=== PATIENT | female | born 1965 | race Caucasian/White ===

== ENCOUNTER 2016-12-13 15:42 | Inpatient (IN) | payer BC, OTHER ==
[~2016-12-13] VITALS: Ht 160 cm; Wt 80.7 kg
[2016-12-14] MEDS ORDERED: LEVE500T20 PO (04:13)
[2016-12-14] MEDS ORDERED: METO25TA6 PO (04:13)
[2016-12-14] MEDS ORDERED: THIA100T13 PO (04:13)
[2016-12-14] MEDS ORDERED: LOPE2CAP40 PO (04:13)
[2016-12-14] MEDS ORDERED: DOCU100C PO (04:13)
[2016-12-14] MEDS ORDERED: ALBU8.5H2 INH (04:13)
[2016-12-14] MEDS ORDERED: NYST5ORA PO (04:13)
[2016-12-14] MEDS ORDERED: NYST60PO TP (04:13)
[2016-12-14] MEDS ORDERED: GABA300T26 PO (04:13)
[2016-12-14] MEDS ORDERED: FERR324T7 PO (04:13)
[2016-12-14] MEDS ORDERED: MENT71OI TP (04:13)
[2016-12-14] MEDS ORDERED: DULO60CA63 PO (04:13)
[2016-12-14] MEDS ORDERED: MAGN400T26 PO (04:13)
[2016-12-14] MEDS ORDERED: ONDA-25 PO (04:13)
[2016-12-14 04:20] VITALS: BP 96/68
[2016-12-14] MEDS ORDERED: ACETAMINOPHEN 325 MG TABLET PO PRN (05:30)
[2016-12-14] MEDS ORDERED: IBUPROFEN 400 MG TABLET PO PRN (05:30)
[2016-12-14] MEDS ORDERED: MIRALAX 17 GM POWD.PACK PO PRN (05:30)
[2016-12-14] MEDS ORDERED: MAGNESIUM HYDROXIDE 30 ML LIQUID UDC PO PRN (05:30)
[2016-12-14] MEDS ORDERED: PROMETHAZINE HCL 25 MG/1 ML VIAL IM PRN (05:30)
[2016-12-14] MEDS ORDERED: MAG HYDROX/AL HYDROX/SIMETH 30 ML LIQUID UDC PO PRN (05:30)
[2016-12-14] MEDS ORDERED: diphenhydrAMINE 50 MG CAPSULE PO PRN (05:30)
[2016-12-14] MEDS ORDERED: ONDANSETRON ODT 4 MG TAB.RAPDIS SL PRN (05:30)
[2016-12-14] MEDS ORDERED: LOPERAMIDE HCL 2 MG CAPSULE PO PRN (05:30)
[2016-12-14] MEDS ORDERED: BUPRENORPHINE HCL 2 MG TAB.SUBL SL PRN (05:30)
[2016-12-14 06:56] LABS: BASOPHILS % (AUTO) 0.1 % (0.0-2.0); EOSINOPHILS # (AUTO) 0.1 K/uL (0.0-0.7); EOSINOPHILS % (AUTO) 1.1 % (0.0-7.0); HEMATOCRIT 34.2 % (37.0-47.0); HEMOGLOBIN 11.2 g/dL (12.0-16.0); LYMPHOCYTES # (AUTO) 1.5 K/uL (0.8-4.8); MEAN CORPUSCULAR HEMOGLOBIN 25.4 uug (27.0-31.0); MEAN CORPUSCULAR HGB CONC 33 g/dL (32.0-37.0); MEAN CORPUSCULAR VOLUME 77.4 fL (81.0-99.0); MONOCYTES # (AUTO) 0.8 K/uL (0.1-1.30); MONOCYTES % (AUTO) 8.8 % (0.0-11.0); NEUTROPHILS # (AUTO) 6.7 K/uL (1.8-8.9); PLATELET COUNT (AUTO) 363 K/uL (150-450); RED BLOOD CELL COUNT(AUTO) 4.41 MIL/uL (4.20-5.40); RED CELL DISTRIBUTION WIDTH 16.8 % (11.5-14.5); WHITE BLOOD COUNT (AUTO) 9.1 K/uL (4.0-11.2)
[2016-12-14 07:34] LABS: ALANINE AMINOTRANSFERASE 20 U/L (14-59); ALBUMIN 2.5 g/dL (3.4-5.0); ALKALINE PHOSPHATASE 81 U/L (50-136); AMYLASE 8 U/L (25-115); ASPARTATE AMINOTRANSFERASE 59 U/L (15-37); BILIRUBIN,TOTAL 0.5 mg/dL (0.2-1.0); CALCIUM 9.1 mg/dL (8.5-10.1); CARBON DIOXIDE 25 mmol/L (21-32); CHLORIDE 99 mmol/L (98-107); GFR 25 mL/min (>60); GLUCOSE 97 mg/dL (74-106); LIPASE 51 U/L (73-393); MAGNESIUM 1.6 mg/dL (1.8-2.4); POTASSIUM 3.7 mmol/L (3.5-5.1); SODIUM SERUM 133 mmol/L (136-145); TOTAL PROTEIN, SERUM 7.2 g/dL (6.4-8.2); UREA NITROGEN, BLOOD 20 mg/dL (7-18)
[2016-12-14 07:37] LABS: CREATININE 2.1 mg/dL (0.6-1.3)
[2016-12-14 07:45] LABS: THYROID STIMULATING HORMONE 4.153 mIU/mL (0.358-3.740)
[2016-12-14 08:00] VITALS: BP 104/66
[2016-12-14 08:29] LABS: ETHANOL < 3 MG/DL (0-0)
[2016-12-14 09:40] LABS: HIV-1 p24 ANTIGEN NON REACTIVE (NONREACTIVE); HIV-1/2 ANTIBODY NON REACTIVE (NONREACTIVE)
[2016-12-14 10:02] LABS: *URINE HCG, QUAL NEGATIVE (NEGATIVE)
[2016-12-14] MEDS ORDERED: CLONIDINE HCL 0.1 MG TABLET PO SCH (10:04)
[2016-12-14] MEDS: MULTIVITAMINS,THERAPEUTIC TABLET PO SCH (10:16)
[2016-12-14 10:19] LABS: *AMPHETAMINE, URINE NEGATIVE (NEGATIVE); *BARBITURATE, URINE NEGATIVE (NEGATIVE); *CANNABINOID, URINE NEGATIVE (NEGATIVE); *COCCAINE, URINE NEGATIVE (NEGATIVE); *OPIATE, URINE NEGATIVE (NEGATIVE); *PHENCYCLIDINE SCREEN,URINE NEGATIVE (NEGATIVE)
[2016-12-14 12:00] VITALS: BP 112/72
[2016-12-14] MEDS ORDERED: LORAZEPAM 1 MG TABLET PO PRN (12:30)
[2016-12-14] MEDS ORDERED: MAGNESIUM OXIDE 400 MG TABLET PO ONE (12:30)
[2016-12-14] MEDS ORDERED: STOOL SOFTNER PO PRN (12:30)
[2016-12-14] MEDS ORDERED: DICYCLOMINE HCL 20 MG TABLET PO PRN (12:30)
[2016-12-14] MEDS ORDERED: LORAZEPAM 2 MG/1 ML VIAL IM PRN (12:30)
[2016-12-14] MEDS ORDERED: PATIENT MAY USE OWN MED- MD OK INH PRN (12:30)
[2016-12-14] MEDS: IBUPROFEN 600 MG TABLET PO PRN ×2 (13:25→22:03)
[2016-12-14] MEDS: HYDROXYZINE PAMOATE 25 MG CAPSULE PO PRN (13:26)
[2016-12-14] MEDS: METHOCARBAMOL 750 MG TABLET PO PRN (13:45)
[2016-12-14] MEDS: LOPERAMIDE HCL 2 MG CAPSULE PO PRN ×2 (13:45→22:03)
[2016-12-14] MEDS ORDERED: NEOMY/BACITRAC/POLYMI OINT 28.35 GM TUBE TOP SCH (15:00)
[2016-12-14 16:00] VITALS: BP 97/68
[2016-12-14] MEDS: GABAPENTIN 300 MG CAPSULE PO SCH (17:19)
[2016-12-14] MEDS: DULOXETINE 60 MG CAPSULE.DR PO SCH (17:19)
[2016-12-14 20:00] VITALS: BP 110/78
[2016-12-14] MEDS ORDERED: LEVETIRACETAM 500 MG TABLET PO SCH (21:00)
[2016-12-14] MEDS ORDERED: CEPHALEXIN MONOHYDRATE 250 MG CAPSULE PO SCH (22:00)
[2016-12-14] MEDS: LEVETIRACETAM 250 MG TABLET PO SCH (22:01)
[2016-12-14] MEDS: DOXYCYCLINE HYCLATE 100 MG TABLET PO SCH (22:01)
[2016-12-14] MEDS: ACIDOPHILUS/BULGARICUS CHEW TAB GT SCH (22:02)
[2016-12-14] MEDS: CEPHALEXIN MONOHYDRATE 500 MG CAPSULE PO SCH (22:02)
[2016-12-15] VITALS (7 sets, daily range): BP systolic 90–141; BP diastolic 55–94
[2016-12-15] MEDS: ACIDOPHILUS/BULGARICUS CHEW TAB GT SCH ×3 (06:01→21:26)
[2016-12-15] MEDS: CEPHALEXIN MONOHYDRATE 500 MG CAPSULE PO SCH ×3 (06:01→21:26)
[2016-12-15] MEDS: METHOCARBAMOL 750 MG TABLET PO PRN (06:04)
[2016-12-15 08:14] LABS: BASOPHILS % (AUTO) 0.4 % (0.0-2.0); EOSINOPHILS # (AUTO) 0.4 K/uL (0.0-0.7); EOSINOPHILS % (AUTO) 5.6 % (0.0-7.0); HEMOGLOBIN 9.4 g/dL (12.0-16.0); LYMPHOCYTES # (AUTO) 1.7 K/uL (0.8-4.8); LYMPHOCYTES % (AUTO) 23.7 % (20.5-51.5); MEAN CORPUSCULAR HEMOGLOBIN 24.6 uug (27.0-31.0); MEAN CORPUSCULAR HGB CONC 33 g/dL (32.0-37.0); MEAN CORPUSCULAR VOLUME 75.6 fL (81.0-99.0); MONOCYTES # (AUTO) 0.7 K/uL (0.1-1.30); MONOCYTES % (AUTO) 9.6 % (0.0-11.0); NEUTROPHILS # (AUTO) 4.2 K/uL (1.8-8.9); NEUTROPHILS % (AUTO) 60.7 % (38.5-71.5); PLATELET COUNT (AUTO) 298 K/uL (150-450); RED BLOOD CELL COUNT(AUTO) 3.83 MIL/uL (4.20-5.40); RED CELL DISTRIBUTION WIDTH 17.1 % (11.5-14.5)
[2016-12-15 09:00] LABS: ALBUMIN 2.2 g/dL (3.4-5.0); BILIRUBIN,DIRECT 0.1 mg/dL (0.0-0.2); BILIRUBIN,TOTAL 0.3 mg/dL (0.2-1.0); CALCIUM 8.6 mg/dL (8.5-10.1); MAGNESIUM 1.9 mg/dL (1.8-2.4); PHOSPHOROUS 4.9 mg/dL (2.5-4.9); POTASSIUM 3.5 mmol/L (3.5-5.1); TOTAL PROTEIN, SERUM 6.3 g/dL (6.4-8.2)
[2016-12-15] MEDS: NICOTINE 14 MG/24HR PATCH TD SCH (09:00)
[2016-12-15 09:01] LABS: CREATININE 1.4 mg/dL (0.6-1.3)
[2016-12-15] MEDS: LEVETIRACETAM 250 MG TABLET PO SCH (09:35)
[2016-12-15] MEDS: DOXYCYCLINE HYCLATE 100 MG TABLET PO SCH ×2 (09:35→21:27)
[2016-12-15] MEDS: DULOXETINE 60 MG CAPSULE.DR PO SCH ×2 (09:35→17:14)
[2016-12-15] MEDS: MULTIVITAMINS,THERAPEUTIC TABLET PO SCH (09:35)
[2016-12-15] MEDS: HYDROXYZINE PAMOATE 25 MG CAPSULE PO PRN ×2 (09:35→21:38)
[2016-12-15] MEDS: IBUPROFEN 600 MG TABLET PO PRN (09:35)
[2016-12-15] MEDS: LOPERAMIDE HCL 2 MG CAPSULE PO PRN ×2 (09:35→21:27)
[2016-12-15] MEDS: GABAPENTIN 300 MG CAPSULE PO SCH ×3 (09:36→21:25)
[2016-12-15] MEDS: CLONIDINE HCL 0.1 MG TABLET PO PRN (09:36)
[2016-12-15] MEDS: NEOMY/BACITRA/POLYMYXIN B OINT UD PACKET TP SCH ×3 (09:46→17:14)
[2016-12-15] MEDS ORDERED: TUBERCULIN,PURIF.PROT.DERIV. 5 TU/0.1 ML TEST ID ONE (10:08)
[2016-12-15] MEDS ORDERED: ENOXAPARIN SODIUM 30 MG/0.3 ML DISP.SYRIN SUBCUT SCH (14:00)
[2016-12-15] MEDS: DICYCLOMINE HCL 20 MG TABLET PO SCH ×2 (14:37→21:18)
[2016-12-15] MEDS: BACLOFEN 10 MG TABLET PO SCH ×2 (14:37→21:18)
[2016-12-15] MEDS: SILVER SULFADIAZINE 1% CREAM 50 GM TP SCH (21:18)
[2016-12-15] MEDS: FERROUS SULFATE 325 MG TABEC PO SCH (21:19)
[2016-12-15] MEDS: LEVETIRACETAM 500 MG TABLET PO SCH (21:25)
[2016-12-15] MEDS: ASCORBIC ACID 250 MG TABLET PO SCH (21:26)
[2016-12-15] MEDS: ENOXAPARIN SODIUM 40 MG/0.4 ML DISP.SYRIN SQ SCH (21:31)
[2016-12-16] VITALS: BP 98/65
[2016-12-16 04:00] VITALS: BP 97/61
[2016-12-16] MEDS: CEPHALEXIN MONOHYDRATE 500 MG CAPSULE PO SCH ×3 (06:30→21:57)
[2016-12-16] MEDS: IBUPROFEN 600 MG TABLET PO PRN (06:30)
[2016-12-16] MEDS: LOPERAMIDE HCL 2 MG CAPSULE PO PRN (07:33)
[2016-12-16 08:00] VITALS: BP 105/67
[2016-12-16 08:03] LABS: BASOPHILS % (AUTO) 0.3 % (0.0-2.0); EOSINOPHILS # (AUTO) 0.2 K/uL (0.0-0.7); HEMATOCRIT 34.9 % (37.0-47.0); HEMOGLOBIN 11.2 g/dL (12.0-16.0); LYMPHOCYTES # (AUTO) 1.6 K/uL (0.8-4.8); MEAN CORPUSCULAR HEMOGLOBIN 24.5 uug (27.0-31.0); MEAN CORPUSCULAR HGB CONC 32 g/dL (32.0-37.0); MEAN CORPUSCULAR VOLUME 76.5 fL (81.0-99.0); MONOCYTES # (AUTO) 0.7 K/uL (0.1-1.30); MONOCYTES % (AUTO) 9.2 % (0.0-11.0); NEUTROPHILS # (AUTO) 5.2 K/uL (1.8-8.9); NEUTROPHILS % (AUTO) 66.5 % (38.5-71.5); PLATELET COUNT (AUTO) 385 K/uL (150-450); RED BLOOD CELL COUNT(AUTO) 4.57 MIL/uL (4.20-5.40); RED CELL DISTRIBUTION WIDTH 17.2 % (11.5-14.5); WHITE BLOOD COUNT (AUTO) 7.7 K/uL (4.0-11.2)
[2016-12-16 08:18] LABS: CALCIUM 8.6 mg/dL (8.5-10.1); CREATININE 0.9 mg/dL (0.6-1.3); MAGNESIUM 1.5 mg/dL (1.8-2.4); PHOSPHOROUS 3.3 mg/dL (2.5-4.9); POTASSIUM 3.3 mmol/L (3.5-5.1)
[2016-12-16 08:48] LABS: THYROID STIMULATING HORMONE 0.969 mIU/mL (0.358-3.740)
[2016-12-16] MEDS: NICOTINE 14 MG/24HR PATCH TD SCH (09:00)
[2016-12-16] MEDS: GABAPENTIN 300 MG CAPSULE PO SCH ×3 (09:33→21:57)
[2016-12-16] MEDS: DOXYCYCLINE HYCLATE 100 MG TABLET PO SCH ×2 (09:33→21:57)
[2016-12-16] MEDS: FERROUS SULFATE 325 MG TABEC PO SCH ×2 (09:33→21:57)
[2016-12-16] MEDS: LEVETIRACETAM 500 MG TABLET PO SCH ×2 (09:33→21:58)
[2016-12-16] MEDS: ASCORBIC ACID 250 MG TABLET PO SCH ×2 (09:33→21:57)
[2016-12-16] MEDS: MULTIVITAMINS,THERAPEUTIC TABLET PO SCH (09:33)
[2016-12-16] MEDS: DULOXETINE 60 MG CAPSULE.DR PO SCH ×2 (09:33→17:24)
[2016-12-16] MEDS: BACLOFEN 10 MG TABLET PO SCH ×3 (09:33→21:57)
[2016-12-16] MEDS: BUPRENORPHINE HCL 2 MG TAB.SUBL SL SCH ×4 (09:33→21:58)
[2016-12-16] MEDS: DICYCLOMINE HCL 20 MG TABLET PO SCH ×3 (09:34→21:57)
[2016-12-16] MEDS: SILVER SULFADIAZINE 1% CREAM 50 GM TP SCH ×2 (09:34→17:25)
[2016-12-16] MEDS ORDERED: NEOMY/BACITRAC/POLYMI OINT 28.35 GM TUBE TP SCH (09:49)
[2016-12-16] MEDS ORDERED: POTASSIUM CHLORIDE 10 MEQ CAPSULE.SA PO ONE (10:15)
[2016-12-16] MEDS ORDERED: MAGNESIUM OXIDE 400 MG TABLET PO ONE (10:15)
[2016-12-16] MEDS ORDERED: QUETIAPINE FUMARATE 25 MG TABLET PO ONE (11:30)
[2016-12-16 12:00] VITALS: BP 107/69
[2016-12-16 14:46] LABS: *OCCULT BLOOD STOOL POSITIVE (NEGATIVE)
[2016-12-16] MEDS: ACIDOPHILUS/BULGARICUS CHEW TAB PO SCH ×2 (14:48→21:57)
[2016-12-16 16:00] VITALS: BP 121/73
[2016-12-16] MEDS ORDERED: NEOMY/BACITRAC/POLYMI OINT 28.35 GM TUBE TP PRN (16:30)
[2016-12-16] MEDS: QUETIAPINE FUMARATE 25 MG TABLET PO SCH (17:25)
[2016-12-16 20:00] VITALS: BP 103/68
[2016-12-16] MEDS: ENOXAPARIN SODIUM 40 MG/0.4 ML DISP.SYRIN SQ SCH (22:00)
[2016-12-17] MEDS: ACIDOPHILUS/BULGARICUS CHEW TAB PO SCH ×3 (06:51→22:00)
[2016-12-17] MEDS: CEPHALEXIN MONOHYDRATE 500 MG CAPSULE PO SCH (06:51)
[2016-12-17 08:00] VITALS: BP 121/89
[2016-12-17 08:12] LABS: BASOPHILS # (AUTO) 0.1 K/uL (0.0-0.2); BASOPHILS % (AUTO) 0.7 % (0.0-2.0); EOSINOPHILS # (AUTO) 0.2 K/uL (0.0-0.7); EOSINOPHILS % (AUTO) 3.2 % (0.0-7.0); HEMATOCRIT 31.6 % (37.0-47.0); HEMOGLOBIN 10.4 g/dL (12.0-16.0); LYMPHOCYTES # (AUTO) 1.9 K/uL (0.8-4.8); LYMPHOCYTES % (AUTO) 26.5 % (20.5-51.5); MEAN CORPUSCULAR HEMOGLOBIN 25.4 uug (27.0-31.0); MEAN CORPUSCULAR HGB CONC 33 g/dL (32.0-37.0); MEAN CORPUSCULAR VOLUME 76.9 fL (81.0-99.0); MONOCYTES # (AUTO) 0.8 K/uL (0.1-1.30); MONOCYTES % (AUTO) 10.9 % (0.0-11.0); NEUTROPHILS # (AUTO) 4.2 K/uL (1.8-8.9); NEUTROPHILS % (AUTO) 58.7 % (38.5-71.5); PLATELET COUNT (AUTO) 329 K/uL (150-450); RED BLOOD CELL COUNT(AUTO) 4.11 MIL/uL (4.20-5.40); RED CELL DISTRIBUTION WIDTH 16.8 % (11.5-14.5); WHITE BLOOD COUNT (AUTO) 7.2 K/uL (4.0-11.2)
[2016-12-17] MEDS: LEVETIRACETAM 500 MG TABLET PO SCH ×2 (08:28→22:13)
[2016-12-17] MEDS: DOXYCYCLINE HYCLATE 100 MG TABLET PO SCH (08:28)
[2016-12-17] MEDS: QUETIAPINE FUMARATE 25 MG TABLET PO SCH ×2 (08:29→16:01)
[2016-12-17] MEDS: DICYCLOMINE HCL 20 MG TABLET PO SCH ×3 (08:29→22:13)
[2016-12-17] MEDS: SILVER SULFADIAZINE 1% CREAM 50 GM TP SCH ×2 (08:29→16:01)
[2016-12-17] MEDS: GABAPENTIN 300 MG CAPSULE PO SCH ×3 (08:29→22:14)
[2016-12-17] MEDS: BUPRENORPHINE HCL 2 MG TAB.SUBL SL SCH ×3 (08:29→22:15)
[2016-12-17] MEDS: MULTIVITAMINS,THERAPEUTIC TABLET PO SCH (08:29)
[2016-12-17] MEDS: ASCORBIC ACID 250 MG TABLET PO SCH ×2 (08:29→22:14)
[2016-12-17] MEDS: DULOXETINE 60 MG CAPSULE.DR PO SCH ×2 (08:29→16:01)
[2016-12-17] MEDS: FERROUS SULFATE 325 MG TABEC PO SCH ×2 (08:29→22:13)
[2016-12-17 08:33] LABS: CALCIUM 8.4 mg/dL (8.5-10.1); CREATININE 0.6 mg/dL (0.6-1.3); MAGNESIUM 1.6 mg/dL (1.8-2.4); PHOSPHOROUS 3.3 mg/dL (2.5-4.9); POTASSIUM 3.8 mmol/L (3.5-5.1)
[2016-12-17] MEDS: NICOTINE 14 MG/24HR PATCH TD SCH (08:34)
[2016-12-17 09:09] LABS: *CREATININE,URINE 68.9 mg/dL (30-125)
[2016-12-17] MEDS: Z GUARD REMEDY PASTE 57 GM TUBE TOP PRN (09:40)
[2016-12-17] MEDS ORDERED: MAGNESIUM OXIDE 400 MG TABLET PO ONE ×2 (10:45→14:00)
[2016-12-17 12:00] VITALS: BP 120/80
[2016-12-17] MEDS ORDERED: QUETIAPINE FUMARATE 25 MG TABLET PO PRN (15:15)
[2016-12-17 16:00] VITALS: BP 92/58
[2016-12-17] MEDS: VANCOMYCIN FOR PO/GT/NG USE PO SCH (18:32)
[2016-12-17] MEDS ORDERED: MEROPENEM 500 MG in IV NORMAL SALINE 50 ML IV SCH (19:45)
[2016-12-17 20:00] VITALS: BP 91/51
[2016-12-17] MEDS ORDERED: MEROPENEM 500 MG VIAL IV ONE (20:49)
[2016-12-17] MEDS: ENOXAPARIN SODIUM 40 MG/0.4 ML DISP.SYRIN SQ SCH (22:16)
[2016-12-18] VITALS: BP 101/54
[2016-12-18] MEDS: VANCOMYCIN FOR PO/GT/NG USE PO SCH ×5 (00:09→23:58)
[2016-12-18] MEDS: ACIDOPHILUS/BULGARICUS CHEW TAB PO SCH ×3 (06:00→21:31)
[2016-12-18 08:00] VITALS: BP 103/78
[2016-12-18 08:20] LABS: CREATININE 0.6 mg/dL (0.6-1.3); MAGNESIUM 1.5 mg/dL (1.8-2.4); POTASSIUM 3.7 mmol/L (3.5-5.1)
[2016-12-18 08:46] LABS: BASOPHILS % (AUTO) 0.6 % (0.0-2.0); EOSINOPHILS # (AUTO) 0.2 K/uL (0.0-0.7); EOSINOPHILS % (AUTO) 4.1 % (0.0-7.0); HEMATOCRIT 32.4 % (37.0-47.0); HEMOGLOBIN 10.6 g/dL (12.0-16.0); LYMPHOCYTES # (AUTO) 1.8 K/uL (0.8-4.8); MEAN CORPUSCULAR HEMOGLOBIN 25.2 uug (27.0-31.0); MEAN CORPUSCULAR HGB CONC 33 g/dL (32.0-37.0); MEAN CORPUSCULAR VOLUME 77.2 fL (81.0-99.0); MONOCYTES # (AUTO) 0.5 K/uL (0.1-1.30); MONOCYTES % (AUTO) 8.9 % (0.0-11.0); NEUTROPHILS % (AUTO) 53.4 % (38.5-71.5); PLATELET COUNT (AUTO) 350 K/uL (150-450); RED BLOOD CELL COUNT(AUTO) 4.21 MIL/uL (4.20-5.40); RED CELL DISTRIBUTION WIDTH 16.6 % (11.5-14.5); WHITE BLOOD COUNT (AUTO) 5.5 K/uL (4.0-11.2)
[2016-12-18] MEDS ORDERED: BUPRENORPHINE HCL 2 MG TAB.SUBL SL SCH (09:00)
[2016-12-18] MEDS ORDERED: VANCOMYCIN IV 1,250 MG in IV DEXTROSE 5% 500 ML IV SCH (09:00)
[2016-12-18 09:25] LABS: FOLIC ACID 14.4 NG/ML (8.6-58.9)
[2016-12-18] MEDS: SILVER SULFADIAZINE 1% CREAM 50 GM TP SCH ×2 (09:45→16:43)
[2016-12-18] MEDS: Z GUARD REMEDY PASTE 57 GM TUBE TOP PRN (09:45)
[2016-12-18] MEDS: QUETIAPINE FUMARATE 25 MG TABLET PO SCH ×2 (09:47→16:42)
[2016-12-18] MEDS: MULTIVITAMINS,THERAPEUTIC TABLET PO SCH (09:47)
[2016-12-18] MEDS: DULOXETINE 60 MG CAPSULE.DR PO SCH ×2 (09:47→16:42)
[2016-12-18] MEDS: DICYCLOMINE HCL 20 MG TABLET PO SCH ×3 (09:48→20:35)
[2016-12-18] MEDS: LEVETIRACETAM 500 MG TABLET PO SCH ×2 (09:48→20:36)
[2016-12-18] MEDS: GABAPENTIN 300 MG CAPSULE PO SCH ×3 (09:49→20:36)
[2016-12-18] MEDS: MEROPENEM 500 MG in IV NORMAL SALINE 50 ML IV SCH ×2 (09:50→21:31)
[2016-12-18] MEDS: ASCORBIC ACID 250 MG TABLET PO SCH ×2 (09:50→20:36)
[2016-12-18] MEDS: NICOTINE 14 MG/24HR PATCH TD SCH (09:51)
[2016-12-18] MEDS: VANCOMYCIN IV 1,250 MG in IV DEXTROSE 5% 500 ML IV SCH ×2 (10:46→22:01)
[2016-12-18] MEDS: FERROUS SULFATE 325 MG TABEC PO SCH ×3 (11:40→18:31)
[2016-12-18 12:00] VITALS: BP 126/85
[2016-12-18] MEDS: BUPRENORPHINE HCL 2 MG TAB.SUBL SL SCH ×2 (14:09→20:37)
[2016-12-18] MEDS ORDERED: MAGNESIUM OXIDE 400 MG TABLET PO ONE (15:00)
[2016-12-18] MEDS: MAGNESIUM SULFATE/D5W 100 ML IV SCH ×2 (15:48→17:27)
[2016-12-18 16:00] VITALS: BP 107/74
[2016-12-18] MEDS ORDERED: FLUCONAZOLE 200 MG/NS 100ML IV 100 MG in PREMIXED 1 EACH IV SCH (19:30)
[2016-12-18 20:00] VITALS: BP 119/84
[2016-12-18] MEDS ORDERED: FLUCONAZOLE 200 MG/100 ML PIGGYBACK ONE ×2 (20:16→20:18)
[2016-12-18] MEDS: ENOXAPARIN SODIUM 40 MG/0.4 ML DISP.SYRIN SQ SCH (20:42)
[2016-12-19] VITALS: BP 137/92
[2016-12-19] MEDS: VANCOMYCIN FOR PO/GT/NG USE PO SCH ×3 (06:15→18:04)
[2016-12-19] MEDS: ACIDOPHILUS/BULGARICUS CHEW TAB PO SCH ×3 (06:16→21:58)
[2016-12-19 07:31] LABS: CALCIUM 8.2 mg/dL (8.5-10.1); CREATININE 0.6 mg/dL (0.6-1.3); MAGNESIUM 1.8 mg/dL (1.8-2.4); PHOSPHOROUS 3.5 mg/dL (2.5-4.9)
[2016-12-19 08:00] VITALS: BP 125/99
[2016-12-19 08:02] LABS: BASOPHILS % (AUTO) 0.5 % (0.0-2.0); EOSINOPHILS # (AUTO) 0.4 K/uL (0.0-0.7); EOSINOPHILS % (AUTO) 6.9 % (0.0-7.0); HEMATOCRIT 32.8 % (37.0-47.0); HEMOGLOBIN 11.1 g/dL (12.0-16.0); LYMPHOCYTES # (AUTO) 1.8 K/uL (0.8-4.8); LYMPHOCYTES % (AUTO) 33.7 % (20.5-51.5); MEAN CORPUSCULAR HGB CONC 34 g/dL (32.0-37.0); MEAN CORPUSCULAR VOLUME 76.5 fL (81.0-99.0); MONOCYTES # (AUTO) 0.5 K/uL (0.1-1.30); MONOCYTES % (AUTO) 10.2 % (0.0-11.0); NEUTROPHILS # (AUTO) 2.6 K/uL (1.8-8.9); NEUTROPHILS % (AUTO) 48.7 % (38.5-71.5); PLATELET COUNT (AUTO) 379 K/uL (150-450); RED BLOOD CELL COUNT(AUTO) 4.29 MIL/uL (4.20-5.40); RED CELL DISTRIBUTION WIDTH 16.6 % (11.5-14.5); WHITE BLOOD COUNT (AUTO) 5.3 K/uL (4.0-11.2)
[2016-12-19] MEDS: VANCOMYCIN IV 1,250 MG in IV DEXTROSE 5% 500 ML IV SCH (08:48)
[2016-12-19] MEDS: NICOTINE 14 MG/24HR PATCH TD SCH (09:00)
[2016-12-19] MEDS: SILVER SULFADIAZINE 1% CREAM 50 GM TP SCH ×2 (10:18→18:05)
[2016-12-19] MEDS: MULTIVITAMINS,THERAPEUTIC TABLET PO SCH (10:21)
[2016-12-19] MEDS: QUETIAPINE FUMARATE 25 MG TABLET PO SCH ×2 (10:21→18:04)
[2016-12-19] MEDS: GABAPENTIN 300 MG CAPSULE PO SCH ×3 (10:21→21:58)
[2016-12-19] MEDS: BUPRENORPHINE HCL 2 MG TAB.SUBL SL SCH ×3 (10:22→21:58)
[2016-12-19] MEDS: DULOXETINE 60 MG CAPSULE.DR PO SCH ×2 (10:22→18:04)
[2016-12-19] MEDS: DICYCLOMINE HCL 20 MG TABLET PO SCH ×3 (10:22→21:58)
[2016-12-19] MEDS: ASCORBIC ACID 250 MG TABLET PO SCH ×2 (10:33→21:58)
[2016-12-19] MEDS: LEVETIRACETAM 500 MG TABLET PO SCH ×2 (10:33→21:58)
[2016-12-19] MEDS: FERROUS SULFATE 325 MG TABEC PO SCH ×3 (10:35→18:04)
[2016-12-19 12:00] VITALS: BP 128/88
[2016-12-19] MEDS: MEROPENEM 500 MG in IV NORMAL SALINE 50 ML IV SCH (12:00)
[2016-12-19] MEDS: IV NS 1000 ML 1,000 ML IV PRN (12:00)
[2016-12-19 16:00] VITALS: BP 130/86
[2016-12-19 20:00] VITALS: BP 133/84
[2016-12-19] MEDS ORDERED: NORMAL SALINE IV SCH (20:00)
[2016-12-19] MEDS ORDERED: DAPTOMYCIN IV SCH (20:00)
[2016-12-19] MEDS: DAPTOMYCIN 500 MG in IV NORMAL SALINE 50 ML IV SCH (20:48)
[2016-12-19] MEDS ORDERED: LACTOBACILLUS RHAMNOSUS GG 1 EACH CAPSULE PO SCH (21:00)
[2016-12-19] MEDS ORDERED: LINEZOLID 600 MG TABLET PO SCH (21:00)
[2016-12-19] MEDS: ENOXAPARIN SODIUM 40 MG/0.4 ML DISP.SYRIN SQ SCH (21:57)
[2016-12-20] VITALS: BP 124/59
[2016-12-20] MEDS: VANCOMYCIN FOR PO/GT/NG USE PO SCH ×4 (00:33→18:10)
[2016-12-20] MEDS: IV NS 1000 ML 1,000 ML IV PRN ×2 (01:41→20:31)
[2016-12-20] MEDS: ACIDOPHILUS/BULGARICUS CHEW TAB PO SCH ×3 (05:31→21:04)
[2016-12-20] MEDS: HYDROXYZINE PAMOATE 25 MG CAPSULE PO PRN (05:53)
[2016-12-20 07:18] LABS: BASOPHILS % (AUTO) 0.5 % (0.0-2.0); EOSINOPHILS # (AUTO) 0.3 K/uL (0.0-0.7); EOSINOPHILS % (AUTO) 6.9 % (0.0-7.0); HEMATOCRIT 30.9 % (37.0-47.0); HEMOGLOBIN 10.4 g/dL (12.0-16.0); LYMPHOCYTES # (AUTO) 1.6 K/uL (0.8-4.8); LYMPHOCYTES % (AUTO) 34.3 % (20.5-51.5); MEAN CORPUSCULAR HEMOGLOBIN 25.7 uug (27.0-31.0); MEAN CORPUSCULAR HGB CONC 34 g/dL (32.0-37.0); MEAN CORPUSCULAR VOLUME 76.1 fL (81.0-99.0); MONOCYTES # (AUTO) 0.5 K/uL (0.1-1.30); MONOCYTES % (AUTO) 11.8 % (0.0-11.0); NEUTROPHILS # (AUTO) 2.1 K/uL (1.8-8.9); NEUTROPHILS % (AUTO) 46.5 % (38.5-71.5); PLATELET COUNT (AUTO) 400 K/uL (150-450); RED BLOOD CELL COUNT(AUTO) 4.06 MIL/uL (4.20-5.40); RED CELL DISTRIBUTION WIDTH 16.7 % (11.5-14.5); WHITE BLOOD COUNT (AUTO) 4.5 K/uL (4.0-11.2)
[2016-12-20 07:29] LABS: CALCIUM 7.5 mg/dL (8.5-10.1); CARBON DIOXIDE 26 mmol/L (21-32); CHLORIDE 95 mmol/L (98-107); GFR > 130 mL/min (>60); GLUCOSE 101 mg/dL (74-106); MAGNESIUM 1.5 mg/dL (1.8-2.4); PHOSPHOROUS 3.6 mg/dL (2.5-4.9); POTASSIUM 3.7 mmol/L (3.5-5.1); SODIUM SERUM 128 mmol/L (136-145); UREA NITROGEN, BLOOD 6 mg/dL (7-18)
[2016-12-20 07:40] LABS: CREATININE 0.5 mg/dL (0.6-1.3)
[2016-12-20] MEDS: DULOXETINE 60 MG CAPSULE.DR PO SCH ×2 (08:55→18:09)
[2016-12-20] MEDS: MULTIVITAMINS,THERAPEUTIC TABLET PO SCH (08:55)
[2016-12-20] MEDS: GABAPENTIN 300 MG CAPSULE PO SCH ×3 (08:55→21:04)
[2016-12-20] MEDS: LEVETIRACETAM 500 MG TABLET PO SCH ×2 (08:55→21:03)
[2016-12-20] MEDS: FLUCONAZOLE 200 MG TABLET PO SCH (08:56)
[2016-12-20] MEDS: QUETIAPINE FUMARATE 25 MG TABLET PO SCH ×2 (08:56→18:10)
[2016-12-20] MEDS: ASCORBIC ACID 250 MG TABLET PO SCH ×2 (08:56→21:03)
[2016-12-20] MEDS: SILVER SULFADIAZINE 1% CREAM 50 GM TP SCH ×2 (08:57→18:10)
[2016-12-20] MEDS: NICOTINE 14 MG/24HR PATCH TD SCH (08:59)
[2016-12-20 09:00] VITALS: BP 120/79
[2016-12-20] MEDS ORDERED: BUPRENORPHINE HCL 2 MG TAB.SUBL SL SCH (09:00)
[2016-12-20] MEDS: DICYCLOMINE HCL 20 MG TABLET PO SCH ×3 (09:34→21:04)
[2016-12-20] MEDS: METHOCARBAMOL 750 MG TABLET PO PRN (09:34)
[2016-12-20] MEDS ORDERED: LIDOCAINE 5% OINT 35.44 GM TUBE TOP PRN (10:15)
[2016-12-20] MEDS: FERROUS SULFATE 325 MG TABEC PO SCH ×3 (12:01→18:10)
[2016-12-20] MEDS ORDERED: MAGNESIUM OXIDE 400 MG TABLET PO ONE (12:15)
[2016-12-20 14:07] VITALS: BP 133/88
[2016-12-20 14:43] LABS: *AMPHETAMINE, URINE NEGATIVE (NEGATIVE); *BARBITURATE, URINE NEGATIVE (NEGATIVE); *CANNABINOID, URINE NEGATIVE (NEGATIVE); *COCCAINE, URINE NEGATIVE (NEGATIVE); *OPIATE, URINE NEGATIVE (NEGATIVE); *PHENCYCLIDINE SCREEN,URINE NEGATIVE (NEGATIVE)
[2016-12-20] MEDS: MAGNESIUM SULFATE/D5W 100 ML IV SCH ×3 (14:54→17:09)
[2016-12-20 17:28] VITALS: BP 135/85
[2016-12-20 20:00] VITALS: BP 106/66
[2016-12-20] MEDS: DAPTOMYCIN 500 MG in IV NORMAL SALINE 50 ML IV SCH (20:30)
[2016-12-20] MEDS: ENOXAPARIN SODIUM 40 MG/0.4 ML DISP.SYRIN SQ SCH (21:08)
[2016-12-21] MEDS: VANCOMYCIN FOR PO/GT/NG USE PO SCH ×4 (00:31→17:06)
[2016-12-21] MEDS: IV NS 1000 ML 1,000 ML IV PRN (05:46)
[2016-12-21] MEDS: ACIDOPHILUS/BULGARICUS CHEW TAB PO SCH ×3 (06:18→21:14)
[2016-12-21 07:48] LABS: HEMATOCRIT 31.6 % (37.0-47.0); HEMOGLOBIN 10.5 g/dL (12.0-16.0); MEAN CORPUSCULAR HEMOGLOBIN 25.5 uug (27.0-31.0); MEAN CORPUSCULAR HGB CONC 33 g/dL (32.0-37.0); PLATELET COUNT (AUTO) 373 K/uL (150-450); RED CELL DISTRIBUTION WIDTH 16.3 % (11.5-14.5); WHITE BLOOD COUNT (AUTO) 5.9 K/uL (4.0-11.2)
[2016-12-21] MEDS: DULOXETINE 60 MG CAPSULE.DR PO SCH ×2 (08:15→17:05)
[2016-12-21] MEDS: MULTIVITAMINS,THERAPEUTIC TABLET PO SCH (08:15)
[2016-12-21] MEDS: GABAPENTIN 300 MG CAPSULE PO SCH ×3 (08:15→21:14)
[2016-12-21] MEDS: DICYCLOMINE HCL 20 MG TABLET PO SCH ×3 (08:15→21:14)
[2016-12-21] MEDS: LEVETIRACETAM 500 MG TABLET PO SCH ×2 (08:15→21:14)
[2016-12-21] MEDS: FLUCONAZOLE 200 MG TABLET PO SCH (08:16)
[2016-12-21] MEDS: ASCORBIC ACID 250 MG TABLET PO SCH ×2 (08:16→21:14)
[2016-12-21] MEDS: QUETIAPINE FUMARATE 25 MG TABLET PO SCH ×2 (08:16→17:06)
[2016-12-21] MEDS: SILVER SULFADIAZINE 1% CREAM 50 GM TP SCH ×2 (08:17→17:06)
[2016-12-21 08:32] LABS: CALCIUM 7.9 mg/dL (8.5-10.1); CARBON DIOXIDE 22 mmol/L (21-32); CHLORIDE 97 mmol/L (98-107); GFR > 130 mL/min (>60); GLUCOSE 112 mg/dL (74-106); MAGNESIUM 1.8 mg/dL (1.8-2.4); PHOSPHOROUS 3.4 mg/dL (2.5-4.9); POTASSIUM 4.8 mmol/L (3.5-5.1); SODIUM SERUM 125 mmol/L (136-145); UREA NITROGEN, BLOOD 4 mg/dL (7-18)
[2016-12-21 08:33] VITALS: BP 141/85
[2016-12-21 08:33] LABS: CREATININE 0.5 mg/dL (0.6-1.3)
[2016-12-21] MEDS: NICOTINE 14 MG/24HR PATCH TD SCH (09:00)
[2016-12-21] MEDS: FERROUS SULFATE 325 MG TABEC PO SCH ×3 (11:08→18:19)
[2016-12-21 11:27] LABS: BAND % (MANUAL) 2 % (0-10); LYMPHOCYTES % (MANUAL) 36 % (20-40); MONOCYTES % (MANUAL) 7 % (2-10); NEUTROPHILS % (MANUAL) 55 % (42-75); PLATELET ESTIMATE ADEQUATE
[2016-12-21 11:28] LABS: ANISOCYTOSIS 1+; HYPOCHROMASIA 1+
[2016-12-21] MEDS: HYDROXYZINE PAMOATE 25 MG CAPSULE PO PRN ×2 (12:43→21:14)
[2016-12-21 12:46] VITALS: BP 138/86
[2016-12-21] MEDS ORDERED: IV NS 1000 ML 1,000 ML IV ONE (17:00)
[2016-12-21 18:37] VITALS: BP 110/60
[2016-12-21] MEDS: Z GUARD REMEDY PASTE 57 GM TUBE TOP PRN (19:33)
[2016-12-21 20:00] VITALS: BP 138/82
[2016-12-21] MEDS: DAPTOMYCIN 500 MG in IV NORMAL SALINE 50 ML IV SCH (21:13)
[2016-12-21] MEDS: IBUPROFEN 600 MG TABLET PO PRN (21:14)
[2016-12-21] MEDS: ENOXAPARIN SODIUM 40 MG/0.4 ML DISP.SYRIN SQ SCH (21:15)
[2016-12-21] MEDS: CLONIDINE HCL 0.1 MG TABLET PO PRN (21:15)
[2016-12-22] MEDS: VANCOMYCIN FOR PO/GT/NG USE PO SCH ×4 (00:08→17:11)
[2016-12-22] MEDS: ACIDOPHILUS/BULGARICUS CHEW TAB PO SCH ×2 (06:20→15:20)
[2016-12-22 06:30] VITALS: BP 114/70
[2016-12-22 07:41] LABS: BASOPHILS % (AUTO) 0.2 % (0.0-2.0); EOSINOPHILS # (AUTO) 0.2 K/uL (0.0-0.7); EOSINOPHILS % (AUTO) 2.6 % (0.0-7.0); HEMOGLOBIN 9.4 g/dL (12.0-16.0); LYMPHOCYTES # (AUTO) 1.8 K/uL (0.8-4.8); LYMPHOCYTES % (AUTO) 23.8 % (20.5-51.5); MEAN CORPUSCULAR HEMOGLOBIN 25.9 uug (27.0-31.0); MEAN CORPUSCULAR HGB CONC 34 g/dL (32.0-37.0); MEAN CORPUSCULAR VOLUME 76.9 fL (81.0-99.0); MONOCYTES # (AUTO) 0.5 K/uL (0.1-1.30); MONOCYTES % (AUTO) 7.1 % (0.0-11.0); NEUTROPHILS # (AUTO) 4.9 K/uL (1.8-8.9); NEUTROPHILS % (AUTO) 66.3 % (38.5-71.5); PLATELET COUNT (AUTO) 359 K/uL (150-450); RED BLOOD CELL COUNT(AUTO) 3.65 MIL/uL (4.20-5.40); RED CELL DISTRIBUTION WIDTH 16.6 % (11.5-14.5); WHITE BLOOD COUNT (AUTO) 7.4 K/uL (4.0-11.2)
[2016-12-22 07:49] LABS: CREATININE 0.6 mg/dL (0.6-1.3); MAGNESIUM 1.6 mg/dL (1.8-2.4)
[2016-12-22 08:00] VITALS: BP 131/83
[2016-12-22 08:08] LABS: HEPATITIS B CORE AB, IgM Negative; HEPATITIS B SURFACE AG Negative
[2016-12-22 08:33] LABS: ANISOCYTOSIS 1+; EOSINOPHILS % (MANUAL) 3 % (0-8); HYPOCHROMASIA 1+; LYMPHOCYTES % (MANUAL) 19 % (20-40); MONOCYTES % (MANUAL) 6 % (2-10); NEUTROPHILS % (MANUAL) 72 % (42-75); PLATELET ESTIMATE ADEQUATE
[2016-12-22] MEDS: NICOTINE 14 MG/24HR PATCH TD SCH (09:00)
[2016-12-22] MEDS: QUETIAPINE FUMARATE 25 MG TABLET PO SCH ×2 (09:50→17:13)
[2016-12-22] MEDS: DICYCLOMINE HCL 20 MG TABLET PO SCH ×3 (09:51→20:43)
[2016-12-22] MEDS: MULTIVITAMINS,THERAPEUTIC TABLET PO SCH (09:51)
[2016-12-22] MEDS: GABAPENTIN 300 MG CAPSULE PO SCH ×3 (09:51→20:43)
[2016-12-22] MEDS: LEVETIRACETAM 500 MG TABLET PO SCH ×2 (09:51→20:43)
[2016-12-22] MEDS: ASCORBIC ACID 250 MG TABLET PO SCH ×2 (09:51→20:43)
[2016-12-22] MEDS: DULOXETINE 60 MG CAPSULE.DR PO SCH ×2 (09:51→17:13)
[2016-12-22] MEDS: FLUCONAZOLE 200 MG TABLET PO SCH (09:52)
[2016-12-22] MEDS: SILVER SULFADIAZINE 1% CREAM 50 GM TP SCH ×2 (09:52→17:14)
[2016-12-22] MEDS: IBUPROFEN 600 MG TABLET PO PRN (10:14)
[2016-12-22] MEDS: HYDROXYZINE PAMOATE 25 MG CAPSULE PO PRN (10:18)
[2016-12-22] MEDS ORDERED: MAGNESIUM OXIDE 400 MG TABLET PO ONE (11:00)
[2016-12-22 12:00] VITALS: BP 129/90
[2016-12-22] MEDS: FERROUS SULFATE 325 MG TABEC PO SCH ×3 (12:07→18:33)
[2016-12-22 16:00] VITALS: BP 156/109
[2016-12-22] MEDS: CLONIDINE HCL 0.1 MG TABLET PO PRN (17:11)
[2016-12-22] MEDS: METHOCARBAMOL 750 MG TABLET PO PRN (17:11)
[2016-12-22 20:00] VITALS: BP 156/89
[2016-12-22] MEDS ORDERED: KETOROLAC TROMETHAMINE 30 MG INJ IM ONE (20:00)
[2016-12-22] MEDS: DAPTOMYCIN 500 MG in IV NORMAL SALINE 50 ML IV SCH (20:34)
[2016-12-22] MEDS: ENOXAPARIN SODIUM 40 MG/0.4 ML DISP.SYRIN SQ SCH (20:44)
[2016-12-22] MEDS ORDERED: ASCO250T5 PO (20:54)
[2016-12-22] MEDS ORDERED: ACID1TAB4 PO (20:54)
[2016-12-22] MEDS ORDERED: FERR325T28 PO (20:54)
[2016-12-22 23:45] VITALS: BP 154/86
== END 2016-12-22 23:52 | disposition short-term general hospital (02) | DRG 895 ==
LOC: SRC 12-14 02:19
PROVIDERS: ADMIT Internal Medicine; ATTEND Internal Medicine
PROC: HZ2ZZZZ Detoxification Services for Substance Abuse Treatment (ICD-10-PCS; principal; 2016-12-14)
PROC: HZ41ZZZ Group Counseling for Substance Abuse Treatment, Behavioral (ICD-10-PCS; 2016-12-15)
PROC: HZ31ZZZ Individual Counseling for Substance Abuse Treatment, Behavioral (ICD-10-PCS; 2016-12-16)
PROC: 05H533Z Insertion of Infusion Device into Right Subclavian Vein, Percutaneous Approach (ICD-10-PCS; 2016-12-19)
DX: F11.23 Opioid dependence with withdrawal (principal); L03.116 Cellulitis of left lower limb; K63.2 Fistula of intestine; N17.9 Acute kidney failure, unspecified; A04.7 Enterocolitis due to Clostridium difficile; L97.829 Non-pressure chronic ulcer of other part of left lower leg with unspecified severity; L97.819 Non-pressure chronic ulcer of other part of right lower leg with unspecified severity; E87.1 Hypo-osmolality and hyponatremia; F33.3 Major depressive disorder, recurrent, severe with psychotic symptoms; B37.89 Other sites of candidiasis; L03.115 Cellulitis of right lower limb; E66.01 Morbid (severe) obesity due to excess calories; G40.909 Epilepsy, unspecified, not intractable, without status epilepticus; F10.21 Alcohol dependence, in remission; G89.4 Chronic pain syndrome; Z90.710 Acquired absence of both cervix and uterus; Z98.84 Bariatric surgery status; Z83.3 Family history of diabetes mellitus; Z82.49 Family history of ischemic heart disease and other diseases of the circulatory system; Z68.31 Body mass index [BMI] 31.0-31.9, adult; Z81.1 Family history of alcohol abuse and dependence; Z86.74 Personal history of sudden cardiac arrest; M14.672 Charcot's joint, left ankle and foot; M14.671 Charcot's joint, right ankle and foot; D50.9 Iron deficiency anemia, unspecified; B95.7 Other staphylococcus as the cause of diseases classified elsewhere; I87.2 Venous insufficiency (chronic) (peripheral); F17.210 Nicotine dependence, cigarettes, uncomplicated; E88.09 Other disorders of plasma-protein metabolism, not elsewhere classified; Z86.73 Personal history of transient ischemic attack (TIA), and cerebral infarction without residual deficits; K26.7 Chronic duodenal ulcer without hemorrhage or perforation; N18.9 Chronic kidney disease, unspecified; I12.9 Hypertensive chronic kidney disease with stage 1 through stage 4 chronic kidney disease, or unspecified chronic kidney disease; J45.909 Unspecified asthma, uncomplicated; I95.1 Orthostatic hypotension; G47.00 Insomnia, unspecified; E83.42 Hypomagnesemia; E07.81 Sick-euthyroid syndrome; E87.8 Other disorders of electrolyte and fluid balance, not elsewhere classified; I70.8 Atherosclerosis of other arteries; B95.2 Enterococcus as the cause of diseases classified elsewhere; Z16.21 Resistance to vancomycin; E86.0 Dehydration; E87.6 Hypokalemia; E86.1 Hypovolemia; F41.9 Anxiety disorder, unspecified; K76.0 Fatty (change of) liver, not elsewhere classified; L98.8 Other specified disorders of the skin and subcutaneous tissue
CPT/HCPCS: 36415; 70030-TC; 80299; 80307; 82746; 83550; 83690; 83735; 84100; 84300; 84443; 84703; 85025; 86580; 86592; 86625; 86705; 86803; 87040; 87046; 87070; 87077; 87086; 87340; 87806; 93005; 93307; 97001; A4663; G6040-TC; J0878; J1450; J1650; J1885; J2185; J2550; J3370; J3475; J3490; J7030; J7060; Q0162; Q0163

== ENCOUNTER → 2016-12-16 | Outpatient (CLI) | payer BC ==
[~2016-12-16] MED LIST: ALBU8.5H2 INH; DOCU100C PO; DULO60CA63 PO; FERR324T7 PO; GABA300T26 PO; LEVE500T20 PO; LOPE2CAP40 PO; MAGN400T26 PO; MENT71OI TP; METO25TA6 PO; NYST5ORA PO; NYST60PO TP; ONDA-25 PO; THIA100T13 PO
== END | disposition home or self-care (01) ==
LOC: CT 13:45
PROVIDERS: ATTEND Internal Medicine
DX: I67.2 Cerebral atherosclerosis (principal); K76.0 Fatty (change of) liver, not elsewhere classified; I70.0 Atherosclerosis of aorta; Z90.710 Acquired absence of both cervix and uterus
CPT/HCPCS: 70450

== ENCOUNTER 2016-12-19 13:15 | Outpatient (CLI) | payer BC ==
[2016-12-19] MEDS ORDERED: DIATR MEGLU/DIATRIZOATE SODIUM 120 ML BOTTLE ONE (15:32)
== END 2016-12-19 23:59 | disposition other institution (70) ==
LOC: XRAY 13:15
PROVIDERS: ATTEND Surgery
DX: S31.609A Unspecified open wound of abdominal wall, unspecified quadrant with penetration into peritoneal cavity, initial encounter (principal); K63.2 Fistula of intestine; X58.XXXA Exposure to other specified factors, initial encounter; Y93.89 Activity, other specified; Y92.89 Other specified places as the place of occurrence of the external cause; Y99.8 Other external cause status
CPT/HCPCS: Q9963